=== PATIENT | female | born 1985 | race Two or more races ===

== ENCOUNTER 2016-11-16 04:31 | Emergency (ER) | payer OTHER ==
[~2016-11-16] VITALS: Ht 165.1 cm; Wt 87.8 kg
[2016-11-16] MEDS ORDERED: VENTOLIN HFA18 GM IH (05:33)
[2016-11-16] MEDS ORDERED: XYLOCAINE VISC100 ML PO (05:33)
[2016-11-16 06:39] VITALS: BP 136/108
== END 2016-11-16 06:40 | disposition home or self-care (01) ==
LOC: EME 04:31
DX: R13.10 Dysphagia, unspecified (principal); R06.2 Wheezing; Z72.0 Tobacco use
CPT/HCPCS: 94640; 94664; J1100